=== PATIENT | male | born 1975 ===

== ENCOUNTER 2017-04-12 16:56 | Emergency (ER) | payer SELFPAY ==
[2017-04-12 17:01] VITALS: BP 121/80; PULSE 86; RESP 16; TEMP 97.7; O2SAT 99
[2017-04-12] MEDS ORDERED: Alum-Mag Hydrox-Simethicone Susp (30 mL) PO STA (17:42)
--- NOTE | 2017-04-12 18:06 | ED PDOC ---
HPI: Abdomen Time Seen by Provider: 04/12/17 17:10 Chief Complaint (Nursing): Dizziness/Lightheaded Chief Complaint (Provider): Abdominal Pain History Per: Patient History/Exam Limitations: no limitations Onset/Duration Of Symptoms: Days (x 1) Current Symptoms Are (Timing): Still Present Associated Symptoms: Vomiting, Diarrhea Additional Complaint(s): 42-year-old non-domiciled male presents to the ER complaining of diffuse abdominal pain, onset around 3AM after having hours-long binge of smoking crack. Pain persists and is associated with 3-4 episodes of non-bloody non- bilious vomiting, as well as 2 episodes of watery diarrhea. Last episode was 2 hours ago. Symptoms also associated with chills and body aches. He reports that today he has also been smoking marijuana, but no other substances. Patient requesting detox and food. PMD: None Past Medical History Reviewed: Historical Data, Nursing Documentation, Vital Signs Vital Signs: Last Vital Signs Temp 97.7 F 04/12/17 16:57 Pulse 86 04/12/17 16:57 Resp 16 04/12/17 16:57 BP 121/80 04/12/17 16:57 Pulse Ox 99 04/12/17 18:10 - Medical History PMH: No Chronic Diseases - Surgical History Surgical History: No Surg Hx - Family History Family History: States: Unknown Family Hx - Social History Current smoker - smoking cessation education provided: Yes Alcohol: Social Drugs: Cannabis, Other (crack) - Home Medications Home Medications: Ambulatory Orders Medication Instructions Recorded Dicyclomine [Bentyl] 20 mg PO BID PRN #30 tab 04/12/17 - Allergies Allergies/Adverse Reactions: Allergies Allergy/AdvReac Type Severity Reaction Status Date / Time No Known Allergies Allergy Verified 04/12/17 17:41 Review of Systems ROS Statement: Except As Marked, All Systems Reviewed And Found Negative (As per HPI, otherwise negative) Constitutional: Positive for: Chills, Other (body aches) Gastrointestinal: Positive for: Vomiting, Abdominal Pain, Diarrhea. Negative for: Hematochezia Psych: Positive for: Other (substance use) Physical Exam - Reviewed Nursing Documentation Reviewed: Yes Vital Signs Reviewed: Yes - Physical Exam Appears: Positive for: Non-toxic, No Acute Distress Head Exam: Positive for: ATRAUMATIC, NORMOCEPHALIC Skin: Positive for: Warm, Dry Eye Exam: Positive for: EOMI, PERRL ENT: Negative for: Pharyngeal Erythema, Tonsillar Exudate Neck: Positive for: Painless ROM, Supple Cardiovascular/Chest: Positive for: Regular Rate, Rhythm, Chest Non Tender. Negative for: Murmur Respiratory: Positive for: Normal Breath Sounds. Negative for: Respiratory Distress Gastrointestinal/Abdominal: Positive for: Soft. Negative for: Tenderness, Mass , Distended, Guarding Back: Positive for: Normal Inspection. Negative for: Decreased ROM Extremity: Positive for: Normal ROM. Negative for: Deformity Lymphatic: Negative for: Adenopathy Neurologic/Psych: Positive for: Alert. Negative for: Motor/Sensory Deficits - ECG O2 Sat by Pulse Oximetry: 99 (RA) Pulse Ox Interpretation: Normal Medical Decision Making Medical Decision Making: Initial Impression: Polysubstance abuse, Abdominal pain Time: 17:42 Initial Plan: * Bentyl 20 mg PO * Pepcid 20 mg PO * Maalox Plus 30 ml PO * Tylenol 975 mg PO * Reevaluation and PO challenge Tolerated PO in ER Resources for addiction provided. Scribe Attestation: Documented by Melyssa Griffith, acting as a scribe for Daria Yi MD Provider Scribe Attestation: All medical record entries made by the Scribe were at my direction and personally dictated by me. I have reviewed the chart and agree that the record accurately reflects my personal performance of the history, physical exam, medical decision making, and the department course for this patient. I have also personally directed, reviewed, and agree with the discharge instructions and disposition. Disposition - Clinical Impression Clinical Impression: Polysubstance abuse - Disposition Referrals: [facility] [Outside] Disposition: Routine/Home Disposition Time: 19:00 Condition: IMPROVED Additional Instructions: PLEASE REFER TO LIST FOR ADDICTION RESOURCES. Prescriptions: Dicyclomine [Bentyl] 20 mg PO BID PRN #30 tab PRN Reason: abdominal pain Instructions: Polysubstance Abuse (ED), Abdominal Pain (ED)
[2017-04-12] MEDS ORDERED: Alum-Mag Hydrox-Simethicone Susp (30 mL) ONE (18:25)
== END 2017-04-12 19:40 | disposition home or self-care (01) ==
LOC: H.ER 16:56
DX: F19.10 Other psychoactive substance abuse, uncomplicated (principal); R10.9 Unspecified abdominal pain